=== PATIENT | male | born 1960 | race Caucasian/White ===

== ENCOUNTER 2017-12-24 08:16 | Emergency (ER) | payer BC, OTHER ==
[2017-12-24] MEDS ORDERED: NA CHLORIDE 0.9% 1,000 ML ONE (08:40)
[2017-12-24] MEDS ORDERED: Magnesium Sulfate 1gm IVPB 1 GM/50 ML BAG IV ONE (08:40)
[2017-12-24] MEDS ORDERED: TAMSULOSIN 0.4 MG SR CAP ONE (08:40)
[2017-12-24] MEDS ORDERED: MORPHINE 4 MG/ML SYR ONE (08:40)
[2017-12-24] MEDS ORDERED: ONDANSETRON 4 MG/2 ML VIAL ONE (08:40)
[2017-12-24 08:47] LABS: Absolute Lymphocytes (CBC) 3.6 K/uL (0.7-4.9); Absolute Monocytes 0.8 K/uL (0.1-1.3); Basophils % 0.6 % (0-1.3); Eosinophils % 5.8 % (0-4.4); Hematocrit 47.8 % (39.6-49.0); Lymphocytes % 35.9 % (15.3-44.8); MCH 29.6 pg (27.0-35.0); MCV 87.1 fL (80-100); MPV 8.1 fL (7.6-11.3); Monocytes % 8.3 % (3.3-12.3); RBC Red Blood Cell Count 5.49 M/uL (4.33-5.43)
[2017-12-24] MEDS ORDERED: PROMETHAZINE 25 MG/ML VIAL ONE ×2 (08:50→09:09)
[2017-12-24 09:04] LABS: Potassium 3.9 mmol/L (3.5-5.1)
[2017-12-24] MEDS ORDERED: MEPERIDINE HCL 50 MG/ML AMP ONE (09:09)
--- NOTE | 2017-12-24 09:11 | RAD REPORT ---
EXAM DESCRIPTION: CT - Stone Protocol - 12/24/2017 8:59 am CLINICAL HISTORY: Right-sided abdominal pain, right-sided flank pain COMPARISON: CT study July 2016 TECHNIQUE: Axial 5 mm thick images were obtained without oral or IV contrast. The [id number] span s the entirety of the system partially obscuring uppermost abdomen and lung bases. All CT scans are performed using dose optimization technique as appropriate and may include automated exposure control or mA/KV adjustment according to patient size. FINDINGS: Mild hydronephrosis secondary to a 4 mm right-sided UVJ calculus. No left-sided hydronephr osis. No other obstructing or nonobstructing calculi. No suspicious renal masses. Isodense masses and pyelonephritis are not excluded on a stone protocol CT scan. Urinary bladder is fully contracted. No bladder calculus seen. Imaged portions of the liver, spleen and pancreas show no suspicious findings on non-contrast imaging . Cholecystectomy clips are present. No biliary dilatation. No significant adrenal finding. No suspicious bowel findings. No mass or bulky lymphadenopathy. Fat extends into the origin of the left inguinal canal. No free air , free fluid or inflammatory stranding. No significant bony abnormality. IMPRESSION: Mild right-sided hydronephrosis secondary to a 4 mm UPJ calculus. Isodense masses and pyelonephritis are not excluded on stone protocol technique.
[2017-12-24 09:40] LABS: Urine Blood 2+ (NEG); Urine Glucose NEGATIVE (NEG); Urine Protein NEGATIVE (NEG); Urine Specific Gravity >1.030 (1.005-1.030)
[2017-12-24 09:45] LABS: Urine Bacteria <20 /HPF (NONE SEEN)
[2017-12-24 09:46] LABS: Urine Culture Reflex Order NOT NEEDED; Urine Mucus 2+ /HPF (NONE SEEN)
--- NOTE | 2017-12-24 10:30 | ER ---
Nurse's Notes [facility] Name: Carmen Stewart Age: 57 yrs Sex: Male : 1960 Arrival Date: 12/24/2017 Time: 08:21 Bed 13 Private MD: Tab Pereyra T Diagnosis: Ureterolithiasis Presentation: 12/24 08:25 Presenting complaint: Patient states: right mid back pain that began this morning, pt aa5 also reports nausea, denies vomiting. Pt states "I had kidney stones about a year ago and it feels the same". Pt also reports pressure with urination. 08:25 Transition of care: patient was not received from another setting of care. Onset of aa5 symptoms was December 24, 2017. Risk Assessment: Do you want to hurt yourself or someone else? Patient reports no desire to harm self or others. Initial Sepsis Screen: Does the patient meet any 2 criteria? No. Patient's initial sepsis screen is negative. Does the patient have a suspected source of infection? No. Patient's initial sepsis screen is negative. Care prior to arrival: None. 08:25 Acuity: GOKUL 3 aa5 08:25 Method Of Arrival: Ambulatory aa5 Historical: - Allergies: 08:28 No Known Allergies; aa5 - PMHx: 08:28 Kidney stones; aa5 - PSHx: 08:28 Cholecystectomy; Tonsillectomy; aa5 - Immunization history:: Adult Immunizations up to date. - Social history:: Smoking status: Patient/guardian denies using tobacco. - Ebola Screening: : No symptoms or risks identified at this time. - Family history:: not pertinent. - Hospitalizations: : No recent hospitalization is reported. Screenin:30 Abuse screen: Denies threats or abuse. Denies injuries from another. Nutritional sv screening: No deficits noted. Tuberculosis screening: No symptoms or risk factors identified. Fall Risk None identified. Assessment: 08:28 General: Appears uncomfortable, obese, Behavior is cooperative, appropriate for age, sv anxious. Pain: Complains of pain in right mid back and right low back Pain radiates to right femoral area and right inguinal area Pain currently is 8 out of 10 on a pain scale. Quality of pain is described as sharp, Pain began today Is continuous. Neuro: Level of Consciousness is awake, alert, obeys commands, Oriented to person, place, time, situation, Moves all extremities. Full function Gait is steady. Respiratory: Respiratory effort is even, unlabored, Respiratory pattern is regular, symmetrical. GI: Abdomen is flat, non-distended. : Reports urgency. Derm: Skin is pink, warm \\T\\ dry. 08:50 Reassessment: No changes from previously documented assessment. Patient and/or family sv updated on plan of care and expected duration. Pain level reassessed. Patient is alert, oriented x 3, equal unlabored respirations, skin warm/dry/pink. GI: Pt is actively vomiting. 09:08 Reassessment: No changes from previously documented assessment. Patient and/or family sv updated on plan of care and expected duration. Pain level reassessed. Patient is alert, oriented x 3, equal unlabored respirations, skin warm/dry/pink. GI: Pt is actively vomiting. 09:25 Reassessment: Patient appears in no apparent distress at this time. Patient and/or sv family updated on plan of care and expected duration. Pain level reassessed. Patient is alert, oriented x 3, equal unlabored respirations, skin warm/dry/pink. Pt reports right groin pressure. Pt is drifting in and out of sleep. RA sat 92%, pt placed on O2 \\T\\ 2L per NC. O2 sat up to 97%. Patient states symptoms have improved. 10:00 Reassessment: Patient and/or family updated on plan of care and expected duration. Pain aj1 level reassessed. General: Appears in no apparent distress. comfortable, Behavior is calm, cooperative, appropriate for age. Pain: Complains of pain in pelvis. Neuro: Level of Consciousness is awake, alert, obeys commands. Cardiovascular: Patient's skin is warm and dry. Respiratory: Airway is patent Respiratory effort is even, unlabored, Respiratory pattern is regular, symmetrical. 10:00 Derm: Skin is pink, warm \\T\\ dry. normal. Musculoskeletal: No signs and/or symptoms aj1 reported regarding the musculoskeletal system. Circulation, motion, and sensation intact. Vital Signs: 08:28 BP 175 / 92; Pulse 58; Resp 18; Temp 97.7(O); Pulse Ox 99% on R/A; dh3 08:29 Weight 95.25 kg (R); Height 5 ft. 10 in. (177.80 cm) (R); Pain 8/10; aa5 08:50 Pain 8/10; sv 09:26 BP 129 / 78; Pulse 54; Resp 16; Pulse Ox 97% on 2 lpm NC; sv 10:15 BP 144 / 85; Pulse 50; Resp 16; Pulse Ox 98% on R/A; aj1 08:29 Body Mass Index 30.13 (95.25 kg, 177.80 cm) aa5 ED Course: 08:21 Patient arrived in ED. mr 08:22 Tab Pereyra MD is Private Physician. mr 08:25 Arm band placed on Patient placed in an exam room, on a stretcher. aa5 08:29 Nickolas Monroy MD is Attending Physician. rn 08:29 Triage completed. aa5 08:30 Patient has correct armband on for positive identification. Placed in gown. Bed in low sv position. Call light in reach. Adult w/ patient. Pulse ox on. NIBP on. Door closed. Head of bed elevated. 08:30 Initial lab(s) drawn, by me, sent to lab. Inserted saline lock: 20 gauge in right sv antecubital area, using aseptic technique. Blood collected. Flushed right antecubital with 5 ml normal saline. 08:31 Janene Vsos RN is Primary Nurse. sv 08:33 ED physician to see patient. sv 08:[address] via stretcher. sv 08:56 CT completed. Patient tolerated procedure well. Patient moved back from CT. vr 08:58 CT Stone Protocol In Process Unspecified. EDMS 09:37 Awaiting re-evaluation by ER provider. sv 10:00 Report given to Joleen PALMA. sv 10:50 No provider procedures requiring assistance completed. IV discontinued, intact, aj1 bleeding controlled, No redness/swelling at site. Pressure dressing applied. Administered Medications: 08:20 Drug: NS 0.9% 1000 ml Route: IV; Rate: 1000 ml; Site: right antecubital; sv 08:20 Drug: Zofran 4 mg Route: IVP; Site: right antecubital; sv 08:50 Follow up: Response: No adverse reaction; No change in condition sv 08:22 Drug: morphine 4 mg Route: IVP; Site: right antecubital; sv 08:50 Follow up: Pain 8/10 Adult; Response: No adverse reaction; No change in condition sv 08:24 Drug: Magnesium Sulfate 1 grams Route: IVPB; Infused Over: 1 hrs; Site: right sv antecubital; 08:52 Drug: Phenergan 12.5 mg Route: IVP; Site: right antecubital; sv 09:08 Follow up: Response: No adverse reaction; No change in condition sv 09:10 Drug: Phenergan 12.5 mg Route: IVP; Site: right antecubital; sv 09:37 Follow up: Response: No adverse reaction; Marked relief of symptoms; Nausea is decreasedsv 09:12 Drug: Demerol 50 mg Route: IVP; Site: right antecubital; sv 09:37 Follow up: Response: No adverse reaction; Marked relief of symptoms sv 10:48 Drug: Flomax 0.4 mg Route: PO; aj1 Outcome: 10:29 Discharge ordered by . rn 10:50 Discharged to home ambulatory. aj1 10:50 Condition: good 10:50 Discharge instructions given to patient, Instructed on discharge instructions, follow up and referral plans. no drinking with medication, no driving heavy equipment, medication usage, Demonstrated understanding of instructions, follow-up care, medications, Prescriptions given X 3. 10:51 Patient left the ED. aj1 Signatures: Dispatcher [employer] EDMS Joleen Meraz RN RN aj1 Janene Voss RN RN sv Rivera, Maria mr Nieto, Roman, MD MD rn Calderon, Audri, RN RN aa5 Davis, Victoria vr Herrera, Deanna 3
--- NOTE | 2017-12-24 10:30 | EDPHYS ---
Physician Documentation [facility] Name: Carmen Stewart Age: 57 yrs Sex: Male : 1960 Arrival Date: 12/24/2017 Time: 08:21 Bed 13 Private MD: Tab Pereyra T ED Physician Nickolas Monroy HPI: 12/24 10:00 This 57 yrs old Male presents to ER via Ambulatory with complaints of rn Possible Kidney Stone. 10:00 The patient complains of pain in the low back area. The pain radiates to the pelvis. rn Onset: The symptoms/episode began/occurred this morning. Modifying factors: The symptoms are alleviated by nothing. the symptoms are aggravated by nothing. Associated signs and symptoms: Pertinent positives: nausea, Pertinent negatives: fever. Severity of pain: At its worst the pain was severe in the emergency department the pain is unchanged. The patient has experienced a previous episode. The patient has not recently seen a physician. + hx of kidney stone, sudden onset right flank and groin pain, no testicular pain, + mild dysuria, no hematuria. . Historical: - Allergies: 08:28 No Known Allergies; aa5 - PMHx: 08:28 Kidney stones; aa5 - PSHx: 08:28 Cholecystectomy; Tonsillectomy; aa5 - Immunization history:: Adult Immunizations up to date. - Social history:: Smoking status: Patient/guardian denies using tobacco. - Ebola Screening: : No symptoms or risks identified at this time. - Family history:: not pertinent. - Hospitalizations: : No recent hospitalization is reported. ROS: 10:00 Constitutional: Negative for fever, chills, and weight loss, Eyes: Negative for injury, rn pain, redness, and discharge, Neck: Negative for injury, pain, and swelling, Cardiovascular: Negative for chest pain, palpitations, and edema, Respiratory: Negative for shortness of breath, cough, wheezing, and pleuritic chest pain, Abdomen/GI: + flank/right abd pain, + nausea : Negative for injury, bleeding, discharge, and swelling, MS/Extremity: Negative for injury and deformity, Skin: Negative for injury, rash, and discoloration, Neuro: Negative for headache, weakness, numbness, tingling, and seizure. Exam: 10:00 Constitutional: Well developed male, standing/pacing, appears uncomfortable Head/Face: rn Normocephalic, atraumatic. Eyes: Pupils equal round and reactive to light, extra-ocular motions intact. Lids and lashes normal. Conjunctiva and sclera are non-icteric and not injected. Cornea within normal limits. Periorbital areas with no swelling, redness, or edema. ENT: MMM Abdomen/GI: Soft, non-tender. No distension or tympany. No guarding or rebound. No evidence of tenderness throughout. Back: No spinal tenderness. No costovertebral tenderness. Full range of motion. Skin: Warm, dry with normal turgor. Normal color with no rashes, no lesions, and no evidence of cellulitis. MS/ Extremity: Pulses equal, no cyanosis. Neurovascular intact. Full, normal range of motion. Equal circumference. Vital Signs: 08:28 BP 175 / 92; Pulse 58; Resp 18; Temp 97.7(O); Pulse Ox 99% on R/A; dh3 08:29 Weight 95.25 kg (R); Height 5 ft. 10 in. (177.80 cm) (R); Pain 8/10; aa5 08:50 Pain 8/10; sv 09:26 BP 129 / 78; Pulse 54; Resp 16; Pulse Ox 97% on 2 lpm NC; sv 10:15 BP 144 / 85; Pulse 50; Resp 16; Pulse Ox 98% on R/A; aj1 08:29 Body Mass Index 30.13 (95.25 kg, 177.80 cm) aa5 MDM: 08:29 Patient medically screened. rn 10:28 Differential diagnosis: nephrolithiasis, UTI. rn 10:28 Data reviewed: vital signs, nurses notes, lab test result(s), radiologic studies, CT rn scan, and as a result, I will discharge patient. Counseling: I had a detailed discussion with the patient and/or guardian regarding: the historical points, exam findings, and any diagnostic results supporting the discharge/admit diagnosis, lab results, radiology results, the need for outpatient follow up, to return to the emergency department if symptoms worsen or persist or if there are any questions or concerns that arise at home. Response to treatment: the patient's symptoms have markedly improved after treatment, and as a result, I will discharge patient. Special discussion: I discussed with the patient/guardian in detail that at this point there is no indication for admission to the hospital. It is understood, however, that if the symptoms persist or worsen the patient needs to return immediately for re-evaluation. Based on the history and exam findings, there is no indication for further emergent testing or inpatient evaluation. I discussed with the patient/guardian the need to see the urologist for further evaluation of the symptoms. ED course: Pt markedly improved, most likely dropped into bladder, will dc home with pain meds and zofran prn, with urology f/u as needed,. 12/24 08:34 Order name: Basic Metabolic Panel; Complete Time: 09:11 rn 12/24 08:34 Order name: CBC with Diff; Complete Time: 09:11 rn 12/24 08:34 Order name: Urine Microscopic Only; Complete Time: 09:54 rn 12/24 08:34 Order name: CT Stone Protocol; Complete Time: 09:14 rn 12/24 09:21 Order name: Urine Dipstick--Ancillary (enter results); Complete Time: 09:54 bd 12/24 08:34 Order name: IV Saline Lock; Complete Time: 08:35 rn 12/24 08:34 Order name: Labs collected and sent; Complete Time: 08:35 rn 12/24 08:34 Order name: Urine Dipstick-Ancillary (obtain specimen); Complete Time: 08:54 rn Administered Medications: 08:20 Drug: NS 0.9% 1000 ml Route: IV; Rate: 1000 ml; Site: right antecubital; sv 08:20 Drug: Zofran 4 mg Route: IVP; Site: right antecubital; sv 08:50 Follow up: Response: No adverse reaction; No change in condition sv 08:22 Drug: morphine 4 mg Route: IVP; Site: right antecubital; sv 08:50 Follow up: Pain 8/10 Adult; Response: No adverse reaction; No change in condition sv 08:24 Drug: Magnesium Sulfate 1 grams Route: IVPB; Infused Over: 1 hrs; Site: right sv antecubital; 08:52 Drug: Phenergan 12.5 mg Route: IVP; Site: right antecubital; sv 09:08 Follow up: Response: No adverse reaction; No change in condition sv 09:10 Drug: Phenergan 12.5 mg Route: IVP; Site: right antecubital; sv 09:37 Follow up: Response: No adverse reaction; Marked relief of symptoms; Nausea is decreasedsv 09:12 Drug: Demerol 50 mg Route: IVP; Site: right antecubital; sv 09:37 Follow up: Response: No adverse reaction; Marked relief of symptoms sv 10:48 Drug: Flomax 0.4 mg Route: PO; aj1 Disposition: 12/24/17 10:29 Discharged to Home. Impression: Ureterolithiasis. - Condition is Stable. - Discharge Instructions: Kidney Stones, Dietary Guidelines to Help Prevent Kidney Stones. - Prescriptions for Zofran ODT 4 mg Oral tablet,disintegrating - place 1 tablet by TRANSLINGUAL route every 8-10 hours As needed; 20 tablet. Tylenol- Codeine #3 300-30 mg Oral Tablet - take 1 tablet by ORAL route every 6 hours As needed; 20 tablet. Flomax 0.4 mg Oral Capsule, Sust. Release 24 hr - take 1 capsule by ORAL route once daily Until passage of kidney stone 1/2 hour following the same meal each day; 3 capsule. - Medication Reconciliation Form, Thank You Letter, Antibiotic Education, Prescription Opioid Use form. - Follow up: Private Physician; When: As needed; Reason: Recheck today's complaints, Re-evaluation by your physician. - Problem is new. - Symptoms have improved. Signatures: Dispatcher [employer] EDJoleen Gaona RN RN aj1 Janene Voss RN MINERVA sv Nickolas Monroy MD MD rn Calderon, Audri RN RN aa5 Corrections: (The following items were deleted from the chart) 10:51 10:29 12/24/2017 10:29 Discharged to Home. Impression: Ureterolithiasis. Condition is aj1 Stable. Forms are Medication Reconciliation Form, Thank You Letter, Antibiotic Education, Prescription Opioid Use. Follow up: Private Physician; When: As needed; Reason: Recheck today's complaints, Re-evaluation by your physician. Problem is new. Symptoms have improved. rn
== END 2017-12-24 10:51 | disposition home or self-care (01) ==
LOC: ER 08:16
DX: N20.1 Calculus of ureter (principal); Z87.442 Personal history of urinary calculi
CPT/HCPCS: 36415; 74176; 76377; 80048; 81003; 81015; 85025; 96374; 96375; 99284; J2175; J2405; J2550; J3475; J7030

== ENCOUNTER 2017-12-28 17:52 | Emergency (ER) | payer BC ==
--- NOTE | 2017-12-28 18:24 | EDPHYS ---
Physician Documentation [facility] Name: Carmen Stewart Age: 57 yrs Sex: Male : 1960 Arrival Date: 12/28/2017 Time: 17:52 Bed 26 Private MD: Tab Pereyra T ED Physician Reji Auqino HPI: 12/28 18:11 This 57 yrs old Male presents to ER via Ambulatory with complaints of kdr Choked/Choking. 18:11 Foreign body in esophagus. Onset: The symptoms/episode began/occurred just prior to kdr arrival. Severity of symptoms: At their worst the symptoms were mild moderate just prior to arrival, in the emergency department the symptoms are unchanged. The patient has experienced a previous episode, approximately 10 years ago. The patient has not recently seen a physician. Was eating a roast and when he swallowed, he immediately felt that the food was stuck. Historical: - Allergies: 17:59 No Known Allergies; aj - Home Meds: 17:59 None [Active]; aj - PMHx: 17:59 Kidney stones; aj - PSHx: 17:59 Cholecystectomy; aj - Immunization history:: Adult Immunizations up to date. - Social history:: Smoking status: Patient/guardian denies using tobacco. - Immunization history: Last tetanus immunization: - up to date. - Ebola Screening: : Patient negative for fever greater than or equal to 101.5 degrees Fahrenheit, and additional compatible Ebola Virus Disease symptoms Patient denies exposure to infectious person Patient denies travel to an Ebola-affected area in the 21 days before illness onset No symptoms or risks identified at this time. ROS: 18:11 Constitutional: Negative for fever, chills, and weight loss, Eyes: Negative for injury, kdr pain, redness, and discharge, Neck: Negative for injury, pain, and swelling, Cardiovascular: Negative for chest pain, palpitations, and edema, Respiratory: Negative for shortness of breath, cough, wheezing, and pleuritic chest pain, Back: Negative for injury and pain, : Negative for injury, bleeding, discharge, and swelling, MS/Extremity: Negative for injury and deformity, Skin: Negative for injury, rash, and discoloration, Neuro: Negative for headache, weakness, numbness, tingling, and seizure activity. 18:11 Abdomen/GI: Positive for dysphagia, Negative for abdominal pain, nausea, vomiting, and diarrhea. Exam: 18:11 Constitutional: This is a well developed, well nourished patient who is awake, alert, kdr and in no acute distress. The patient is unable to swallow his sputum or any other fluids. Can feel the senstation of the lodged FB 18:11 Neck: Trachea midline, no thyromegaly or masses palpated, and no cervical kdr lymphadenopathy. Supple, full range of motion without nuchal rigidity, or vertebral point tenderness. No Meningismus. Chest/axilla: Normal chest wall appearance and motion. Nontender with no deformity. No lesions are appreciated. Cardiovascular: Regular rate and rhythm with a normal S1 and S2. No gallops, murmurs, or rubs. Normal PMI, no JVD. No pulse deficits. Respiratory: Lungs have equal breath sounds bilaterally, clear to auscultation and percussion. No rales, rhonchi or wheezes noted. No increased work of breathing, no retractions or nasal flaring. Abdomen/GI: Soft, non-tender, with normal bowel sounds. No distension or tympany. No guarding or rebound. No evidence of tenderness throughout. Vital Signs: 17:59 Temp 98.7; Weight 97.52 kg; Height 5 ft. 11 in. (180.34 cm); aj 18:20 BP 158 / 85; Pulse 59; Pulse Ox 98% on R/A; rv 17:59 Body Mass Index 29.99 (97.52 kg, 180.34 cm) aj An Coma Score: 18:16 Eye Response: spontaneous(4). Verbal Response: oriented(5). Motor Response: obeys rv commands(6). Total: 15. Trauma Score (Adult): 18:16 Eye Response: spontaneous(1); Verbal Response: oriented(1); Motor Response: obeys rv commands(2); Systolic BP: > 89 mm Hg(4); Respiratory Rate: 10 to 29 per min(4); [place] Score: 15; Trauma Score: 12 Procedures: 18:11 Foreign Body Removal: piece of meat, from the Esophagus, by The patient drank "coke" kdr and after a few sips, he had immediate relief from the FB sensation in his esophagus. The patient tolerated the removal well, The patient was able to drink four glasses of water after that without problem.. MDM: 18:11 Data reviewed: vital signs, nurses notes. Counseling: I had a detailed discussion with kdr the patient and/or guardian regarding: the historical points, exam findings, and any diagnostic results supporting the discharge/admit diagnosis, the need for outpatient follow up. 18:23 Patient medically screened. kdr Administered Medications: No medications were administered Disposition: 12/28/17 18:23 Discharged to Home. Impression: Esophageal obstruction - Resolved. - Condition is Stable. - Discharge Instructions: Esophageal Stricture. - Medication Reconciliation Form, Thank You Letter form. - Follow up: Tab Pereyra MD; When: 2 - 3 days; Reason: If symptoms return, Further diagnostic work-up, Recheck today's complaints, Continuance of care, Re-evaluation by your physician. - Problem is new. - Symptoms are resolved. Signatures: Shania Rosenthal, RN RN Reji Guerra MD MD kdr Chandler Jc RN RN rv Corrections: (The following items were deleted from the chart) 18:31 18:23 12/28/2017 18:23 Discharged to Home. Impression: Esophageal obstruction - rv Resolved. Condition is Stable. Forms are Medication Reconciliation Form, Thank You Letter, Antibiotic Education, Prescription Opioid Use. Follow up: Tab Pereyra; When: 2 - 3 days; Reason: If symptoms return, Further diagnostic work-up, Recheck today's complaints, Continuance of care, Re-evaluation by your physician. Problem is new. Symptoms are resolved. kdr
--- NOTE | 2017-12-28 18:24 | ER ---
Nurse's Notes [facility] Name: Carmen Steawrt Age: 57 yrs Sex: Male : 1960 Arrival Date: 12/28/2017 Time: 17:52 Bed 26 Private MD: Tab Pereyra T Diagnosis: Esophageal obstruction-Resolved Presentation: 12/28 17:58 Presenting complaint: Patient states: Began choking while eating dinner. Patient is aj able to speak but reports that he can feel the food bolus in his throat. Patient reports similar incident 10 yrs ago. Transition of care: patient was not received from another setting of care. Onset of symptoms was December 28, 2017. Risk Assessment: Do you want to hurt yourself or someone else? Patient reports no desire to harm self or others. Initial Sepsis Screen: Does the patient meet any 2 criteria? No. Patient's initial sepsis screen is negative. Does the patient have a suspected source of infection? No. Patient's initial sepsis screen is negative. Care prior to arrival: None. 17:58 Method Of Arrival: Ambulatory 17:58 Acuity: GOKUL 2 18:18 Mechanism of Injury: No Mechanism of Injury. Triage Assessment: 17:59 General: Appears in no apparent distress. comfortable, Behavior is calm, cooperative, aj appropriate for age. Pain: Denies pain. EENT: Reports food bolus stuck in throat. Neuro: Level of Consciousness is awake, alert, obeys commands, Oriented to person, place, time, situation, Appropriate for age. Respiratory: Airway is compromised Respiratory effort is even, unlabored, Respiratory pattern is regular, symmetrical. Derm: Skin is intact, is healthy with good turgor, Skin is pink, warm \T\ dry. normal. Historical: - Allergies: 17:59 No Known Allergies; aj - Home Meds: 17:59 None [Active]; aj - PMHx: 17:59 Kidney stones; aj - PSHx: 17:59 Cholecystectomy; aj - Immunization history:: Adult Immunizations up to date. - Social history:: Smoking status: Patient/guardian denies using tobacco. - Immunization history: Last tetanus immunization: - up to date. - Ebola Screening: : Patient negative for fever greater than or equal to 101.5 degrees Fahrenheit, and additional compatible Ebola Virus Disease symptoms Patient denies exposure to infectious person Patient denies travel to an Ebola-affected area in the 21 days before illness onset No symptoms or risks identified at this time. Screenin:02 Abuse screen: Denies threats or abuse. Denies injuries from another. Nutritional rv screening: No deficits noted. Tuberculosis screening: No symptoms or risk factors identified. Fall Risk None identified. Primary Survey: 18:17 Breathing/Chest: Respiratory pattern: regular. rv 18:17 Circulation: Cardiac rhythm: sinus rhythm. Disability Alert. Reassessment rv Breathing/Chest. Reassessment Circulation Heart rhythm Disability Alert. Assessment: 17:59 General: Appears in no apparent distress. comfortable, Behavior is calm, cooperative. rv Pain: Denies pain. Neuro: Level of Consciousness is awake, alert, obeys commands, Oriented to person, place, time, situation. Cardiovascular: Heart tones S1 S2 present. Respiratory: Breath sounds are clear bilaterally. GI: Reports FOOD STUCK INSIDE THROAT. : No signs and/or symptoms were reported regarding the genitourinary system. Vital Signs: 17:59 Temp 98.7; Weight 97.52 kg; Height 5 ft. 11 in. (180.34 cm); aj 18:20 BP 158 / 85; Pulse 59; Pulse Ox 98% on R/A; rv 17:59 Body Mass Index 29.99 (97.52 kg, 180.34 cm) aj [place] Coma Score: 18:16 Eye Response: spontaneous(4). Verbal Response: oriented(5). Motor Response: obeys rv commands(6). Total: 15. Trauma Score (Adult): 18:16 Eye Response: spontaneous(1); Verbal Response: oriented(1); Motor Response: obeys rv commands(2); Systolic BP: > 89 mm Hg(4); Respiratory Rate: 10 to 29 per min(4); An Score: 15; Trauma Score: 12 ED Course: 17:52 Patient arrived in ED. as 17:52 Tab Pereyra MD is Private Physician. as 17:54 Reji Aquino MD is Attending Physician. kdr 17:59 Triage completed. aj 17:59 Arm band placed on left wrist. Patient placed in an exam room, on pulse oximetry. aj 18:02 Patient has correct armband on for positive identification. Bed in low position. Call rv light in reach. Side rails up X 1. Adult w/ patient. Pulse ox on. NIBP on. 18:17 No provider procedures requiring assistance completed. Patient did not have IV access rv during this emergency room visit. 18:18 Patient maintains SpO2 saturation greater than 95% on room air. rv 18:18 Thermoregulation: warm blanket given to patient. rv 18:22 Tab Pereyra MD is Referral Physician. kdr Administered Medications: No medications were administered Outcome: 18:17 Discharged to home ambulatory. rv 18:17 Condition: improved 18:17 Discharge instructions given to patient, Instructed on discharge instructions. 18:18 Patient's length of stay was not longer than 2 hours. rv 18:23 Discharge ordered by . kdr 18:31 Patient left the ED. rv Signatures: Shania Rosenthal, RN RN Reji Guerra MD MD kdr Martinez, Amelia as Vicente, Ronaldo, RN RN rv
== END 2017-12-28 18:31 | disposition home or self-care (01) ==
LOC: ER 17:52
DX: K22.2 Esophageal obstruction (principal)
CPT/HCPCS: 99284

== ENCOUNTER 2020-11-26 16:07 | Emergency (ER) | payer BC ==
--- OUTSIDE RECORDS SUMMARY | 2020-11-26 16:09 | XMS REPORT | Continuity of Care Document ---
:1960 Author Organization [facility] t Address [address] [place] [address] Care Team Providers Name Role Phone Unavailable Unavailable Unavailable Problems Condition Condition Condition Status Onset Resolution Last Treating Co mments Source Name Details Category Date Date Treatment Clinician Date Adult BMI Adult BMI Diagnosis Active [facility] 39.0-39.9 39.0-39.9 Luke s - kg/sq m kg/sq m [facility] ent [facility] Essential Essential Diagnosis Active [facility] hypertensi hypertensi Priya kes - on on [facility] Skin Skin Diagnosis Active [facility] lesion lesion [facility] Allergies, Adverse Reactions, Alerts This patient has no known allergies or adverse reactions. Medications Ordered Filled Start Stop Current Ordering Indication Dosage Frequency Signature Comments Components Source Medication Medication Date Date Medication? Clinician (SIG) Name Name Lisinopril Lisinopril 2017- Yes Jhonatan [address] [facility] 2-17 [facility] - 00:00: Memoria 00 [facility] Clinics Aspir-81 Aspir-81 2017- 2019- No Jhonatan [address] [facility] 2-17 06-15 [facility] - 00:00: 00:00 Memoria 00 :00 [facility] ent Clinics Procedures This patient has no known procedures. Encounters Start End Encounter Admission Attending Care Care Encounter Source Date/Time Date/Time Type Type Clinicians Facility Department ID 2018-05-18 2018-05-18 [facility] [id number] [facility] [address] 08:30:00 08:30:00 [facility] Medicine [facility] Results This patient has no known results.
[2020-11-26 16:48] LABS: Urine Blood 1+ (Negative); Urine Glucose Negative (Negative); Urine Protein Negative (Negative); Urine Specific Gravity 1.025 (1.005-1.030)
[2020-11-26 17:20] LABS: Absolute Lymphocytes (CBC) 1.9 K/uL (0.7-4.9); Basophils % 0.6 % (0-1.3); Hematocrit 41.7 % (39.6-49.0); Lymphocytes % 17.4 % (15.3-44.8); MPV 7.5 fL (7.6-11.3); RBC Red Blood Cell Count 4.83 M/uL (4.33-5.43)
[2020-11-26 17:30] LABS: Urine Bacteria <20 /HPF (NONE SEEN); Urine Mucus LIGHT /HPF (NONE SEEN); Urine RBC <5 /HPF (NONE SEEN)
[2020-11-26] MEDS ORDERED: NA CHLORIDE 0.9% 1,000 ML ONE (17:39)
[2020-11-26 17:42] LABS: ALT/SGPT 26 U/L (12-78); AST/SGOT 14 U/L (15-37); Albumin 3.6 g/dL (3.4-5.0); Alkaline Phosphatase 71 U/L (45-117); BUN Blood Urea Nitrogen 14 mg/dL (7-18); Bicarbonate 27 mmol/L (21-32); Bilirubin Direct < 0.1 mg/dL (0-0.2); Bilirubin Total 0.2 mg/dL (0.2-1.0); Glucose Level 101 mg/dL (74-106); Lipase 76 U/L (73-393); Protein, Total 7.7 g/dL (6.4-8.2); Sodium Level 139 mmol/L (136-145)
--- NOTE | 2020-11-26 18:06 | RAD REPORT ---
EXAM DESCRIPTION: CT - Abdomen Pelvis W Contrast - 11/26/2020 5:53 pm CLINICAL HISTORY: Abdominal pain COMPARISON: 2017 TECHNIQUE: Computed axial tomography of the abdomen pelvis was obtained. 100 cc Isovue-300 was admin istered intravenously. Oral contrast was not requested which limits evaluation of bowel. All CT scans are performed using dose optimization technique as appropriate and may include automated exposure control or mA/KV adjustment according to patient size. FINDINGS: Cholecystectomy Liver, spleen, pancreas, adrenal and kidneys appear unremarkable. Normal appendix Diverticula stem from the colon. Mild to moderate stranding within the adjacent fat. No free air. No abscess Small left inguinal hernia IMPRESSION: Mild to moderate sigmoid diverticulitis
[2020-11-26] MEDS ORDERED: CIPROFLOXACIN HCL 500 MG TAB ONE (18:45)
[2020-11-26] MEDS ORDERED: metroNIDAZOLE 500 MG TABLET ONE (18:45)
--- NOTE | 2020-11-26 18:57 | EDPHYS ---
Physician Documentation [facility] Name: Carmen Stewart Age: 60 yrs Sex: Male : 1960 Arrival Date: 11/26/2020 Time: 16:07 Bed 20 Private MD: Jhonatan Martinez ED Physician Beto Hodge HPI: 11/26 18:53 This 60 yrs old Male presents to ER via Ambulatory with complaints of kb Abdominal Pain, Diarrhea. 18:53 The patient presents with abdominal pain in the lower abdomen. The patient has not kb experienced similar symptoms in the past. The patient has not recently seen a physician. 18:53 Onset: The symptoms/episode began/occurred 7 day(s) ago. The symptoms do not radiate. kb Associated signs and symptoms: Pertinent positives: diarrhea, Pertinent negatives: nausea and vomiting, fever. The symptoms are described as constant. Modifying factors: The symptoms are alleviated by nothing, the symptoms are aggravated by pressure. Severity of pain: At its worst the pain was moderate in the emergency department the pain is unchanged. Pt reports diarrhea from Friday through , started feeling better until this afternoon. Had another episode of diarrhea and some pain to suprapubic area. . Historical: - Allergies: 16:18 No Known Allergies; ll1 - PMHx: 16:18 Kidney stones; Hypertension; ll1 - PSHx: 16:18 Cholecystectomy; testes SX as a ; ll1 - Immunization history:: Client reports receiving the 2nd dose of the Covid vaccine, Flu vaccine is up to date. - Social history:: Smoking status: Patient denies any tobacco usage or history of. ROS: 18:52 Constitutional: Negative for fever, chills, and weight loss. kb 18:52 Abdomen/GI: Positive for abdominal pain, diarrhea, Negative for nausea and vomiting. 18:52 All other systems are negative. Exam: 18:52 Constitutional: This is a well developed, well nourished patient who is awake, alert, kb and in no acute distress. Head/Face: Normocephalic, atraumatic. ENT: Moist Mucous membranes Cardiovascular: Regular rate and rhythm with a normal S1 and S2. No gallops, murmurs, or rubs. No pulse deficits. Respiratory: Respirations even and unlabored. No increased work of breathing, no retractions or nasal flaring. Skin: Warm, dry with normal turgor. Normal color. MS/ Extremity: Pulses equal, no cyanosis. Neurovascular intact. Full, normal range of motion. Neuro: Awake and alert, GCS 15, oriented to person, place, time, and situation. Moves all extremities. Normal gait. Psych: Awake, alert, with orientation to person, place and time. Behavior, mood, and affect are within normal limits. 18:52 Abdomen/GI: Inspection: abdomen appears normal, Bowel sounds: normal, in all quadrants, Palpation: soft, in all quadrants, mild abdominal tenderness, in the suprapubic area and left lower quadrant. Vital Signs: 16:15 BP 131 / 78; Pulse 80; Resp 16; Temp 98.4; Pulse Ox 100% ; Weight 110.22 kg; Height 5 ll1 ft. 11 in. (180.34 cm); Pain 4/10; 17:20 BP 146 / 84; Pulse 69; Resp 19; Pulse Ox 99% ; rb3 18:19 BP 137 / 74; Pulse 72; Resp 19; Pulse Ox 98% ; rb3 16:15 Body Mass Index 33.89 (110.22 kg, 180.34 cm) ll1 MDM: 16:25 Patient medically screened. venita 18:52 Data reviewed: vital signs, nurses notes. Data interpreted: Pulse oximetry: on room air kb is 98 %. Interpretation: normal. Counseling: I had a detailed discussion with the patient and/or guardian regarding: the historical points, exam findings, and any diagnostic results supporting the discharge/admit diagnosis, lab results, radiology results, the need for outpatient follow up, a family practitioner, a surface water manager, to return to the emergency department if symptoms worsen or persist or if there are any questions or concerns that arise at home. 11/26 16:32 Order name: Basic Metabolic Panel; Complete Time: 17:46 kb 11/26 16:32 Order name: CBC with Diff; Complete Time: 17:33 kb 11/26 16:32 Order name: Hepatic Function; Complete Time: 17:46 kb 11/26 16:32 Order name: Lipase; Complete Time: 17:46 kb 11/26 16:32 Order name: Urine Microscopic Only; Complete Time: 17:33 kb 11/26 16:48 Order name: Urine Dipstick-Ancillary; Complete Time: 16:51 EDMS 11/26 16:32 Order name: IV Saline Lock; Complete Time: 17:22 kb 11/26 16:32 Order name: Labs collected and sent; Complete Time: 17:23 kb 11/26 16:32 Order name: Urine Dipstick-Ancillary (obtain specimen); Complete Time: 17:23 kb 11/26 16:51 Order name: CT Abd/Pelvis - IV Contrast Only; Complete Time: 18:08 kb Administered Medications: 17:22 Drug: NS 0.9% 1000 ml Route: IV; Rate: 1000 ml; Site: left antecubital; rb3 18:30 Follow up: IV Status: Completed infusion rb3 18:27 Drug: Flagyl (metroNIDAZOLE) 500 mg Route: PO; rb3 19:00 Follow up: Response: No adverse reaction rb3 18:27 Drug: Cipro (ciprofloxacin) 500 mg Route: PO; rb3 19:00 Follow up: Response: No adverse reaction rb3 Disposition: 11/26/20 18:57 Discharged to Home. Impression: Diverticulitis of intestine, part unspecified, without perforation or abscess without bleeding. - Condition is Stable. - Discharge Instructions: Diverticulitis, [id number]. - Prescriptions for Flagyl 500 mg Oral Tablet - take 1 tablet by ORAL route every 8 hours for 10 days; 30 tablet. Zofran 4 mg Oral Tablet - take 1 tablet by ORAL route every 6 hours As needed; 20 tablet. Cipro 500 mg Oral Tablet - take 1 tablet by ORAL route every 12 hours for 10 days; 20 tablet. Diclofenac Sodium 75 mg Oral Tablet, Delayed Release (E.C.) - take 1 tablet by ORAL route 2 times per day As needed; 30 tablet. - Medication Reconciliation Form, Thank You Letter, Antibiotic Education, Prescription Opioid Use form. - Follow up: Emergency Department; When: As needed; Reason: Worsening of condition. Follow up: Private Physician; When: 2 - 3 days; Reason: Recheck today's complaints, Continuance of care, Re-evaluation by your physician. Signatures: Dispatcher [employer] [facility] Allie Oliver, DELBERT JOHNSTON-Beto Castaneda MD MD cha Lewis, Lynsay, RN RN ll1 Sheeba Copeland, RN RN rb3 Corrections: (The following items were deleted from the chart) 19:06 18:57 11/26/2020 18:57 Discharged to Home. Impression: Diverticulitis of intestine, rb3 part unspecified, without perforation or abscess without bleeding. Condition is Stable. Forms are Medication Reconciliation Form, Thank You Letter, Antibiotic Education, Prescription Opioid Use. Follow up: Emergency Department; When: As needed; Reason: Worsening of condition. Follow up: Private Physician; When: 2 - 3 days; Reason: Recheck today's complaints, Continuance of care, Re-evaluation by your physician. kb
--- NOTE | 2020-11-26 18:57 | ER ---
Nurse's Notes [facility] Name: Carmen Stewart Age: 60 yrs Sex: Male : 1960 Arrival Date: 11/26/2020 Time: 16:07 Bed 20 Private MD: Jhonatan Martinez Diagnosis: Diverticulitis of intestine, part unspecified, without perforation or abscess without bleeding Presentation: 11/26 16:15 Chief complaint: Patient states: Diarrhea started Friday through . Started to ll1 feel better. Today, started having suprapubic pain. Slight nausea yesterday. Coronavirus screen: Client denies travel out of the [place] in the last 14 days. At this time, the client does not indicate any symptoms associated with coronavirus-19. Ebola Screen: Patient denies travel to an Ebola-affected area in the 21 days before illness onset. Initial Sepsis Screen: Does the patient meet any 2 criteria? No. Patient's initial sepsis screen is negative. Does the patient have a suspected source of infection? Yes: Acute abdominal pain. Risk Assessment: Do you want to hurt yourself or someone else? Patient reports no desire to harm self or others. Onset of symptoms was November 20, 2020. 16:15 Method Of Arrival: Ambulatory ll1 16:15 Acuity: GOKUL 3 ll1 Historical: - Allergies: 16:18 No Known Allergies; ll1 - PMHx: 16:18 Kidney stones; Hypertension; ll1 - PSHx: 16:18 Cholecystectomy; testes SX as a infant; ll1 - Immunization history:: Client reports receiving the 2nd dose of the Covid vaccine, Flu vaccine is up to date. - Social history:: Smoking status: Patient denies any tobacco usage or history of. Screenin:20 Abuse screen: Denies threats or abuse. Nutritional screening: No deficits noted. rb3 Tuberculosis screening: No symptoms or risk factors identified. Fall Risk None identified. Assessment: 16:20 General: Appears in no apparent distress. Behavior is calm, cooperative, Denies fever. rb3 Pain: Complains of pain in suprapubic area Pain currently is 4 out of 10 on a pain scale. Neuro: Level of Consciousness is awake, alert, obeys commands, Oriented to person, place, time, situation. Cardiovascular: Patient's skin is warm and dry. Respiratory: Airway is patent Respiratory effort is even, unlabored, Respiratory pattern is regular, symmetrical. GI: Reports nausea, yesterday. : No signs and/or symptoms were reported regarding the genitourinary system. 17:19 Reassessment: Patient appears in no apparent distress at this time. No changes from rb3 previously documented assessment. 18:12 Reassessment: Patient appears in no apparent distress at this time. Patient and/or rb3 family updated on plan of care and expected duration. Pain level reassessed. Patient is alert, oriented x 3, equal unlabored respirations, skin warm/dry/pink. Vital Signs: 16:15 BP 131 / 78; Pulse 80; Resp 16; Temp 98.4; Pulse Ox 100% ; Weight 110.22 kg; Height 5 ll1 ft. 11 in. (180.34 cm); Pain 4/10; 17:20 BP 146 / 84; Pulse 69; Resp 19; Pulse Ox 99% ; rb3 18:19 BP 137 / 74; Pulse 72; Resp 19; Pulse Ox 98% ; rb3 16:15 Body Mass Index 33.89 (110.22 kg, 180.34 cm) ll1 ED Course: 16:07 Patient arrived in ED. am2 16:08 Jhonatan Martinez MD is Private Physician. am2 16:17 Triage completed. ll1 16:18 Arm band placed on. ll1 16:19 Allie Oliver FNP-C is [facility]. kb 16:19 Beto Hodge MD is Attending Physician. kb 16:20 Sheeba Copeland, RN is Primary Nurse. rb3 16:20 Patient has correct armband on for positive identification. Bed in low position. Call rb3 light in reach. Side rails up X 1. Pulse ox on. NIBP on. 17:10 Missed attempt(s): 20 gauge Bleeding controlled, band aid applied, catheter tip intact. rb3 17:15 Inserted saline lock: 22 gauge in left antecubital area, using aseptic technique. Blood rb3 collected. 17:53 CT Abd/Pelvis - IV Contrast Only In Process Unspecified. EDMS 19:05 No provider procedures requiring assistance completed. IV discontinued, intact, rb3 bleeding controlled, No redness/swelling at site. Pressure dressing applied. Administered Medications: 17:22 Drug: NS 0.9% 1000 ml Route: IV; Rate: 1000 ml; Site: left antecubital; rb3 18:30 Follow up: IV Status: Completed infusion rb3 18:27 Drug: Flagyl (metroNIDAZOLE) 500 mg Route: PO; rb3 19:00 Follow up: Response: No adverse reaction rb3 18:27 Drug: Cipro (ciprofloxacin) 500 mg Route: PO; rb3 19:00 Follow up: Response: No adverse reaction rb3 Outcome: 18:57 Discharge ordered by MD. mares 19:05 Discharged to home ambulatory, with family. rb3 19:05 Condition: stable 19:05 Discharge instructions given to patient, Instructed on discharge instructions, follow up and referral plans. medication usage, Demonstrated understanding of instructions, follow-up care, medications, Prescriptions given X 4. 19:06 Patient left the ED. rb3 Signatures: Dispatcher [employer] EDMS Allie Oliver, VICKIE-C MAIL PROCESSING ASSOCIATE-Shania Christie Lynsay, RN RN ll1 Sheeba Copeland, RN RN rb3
[2020-11-26 19:21] VITALS: TEMP 98.4
[2020-11-26 19:25] VITALS: BP 137/74; O2SAT 98
== END 2020-11-26 19:06 | disposition home or self-care (01) ==
LOC: ER 16:07
DX: K57.32 Diverticulitis of large intestine without perforation or abscess without bleeding (principal); I10 Essential (primary) hypertension
CPT/HCPCS: 85025; 80048; 36415; 82565 ×2; 80076; 83690; 74177; Q9967; J7030; 81003; 81015; 96360; 99284